=== PATIENT | male | born 1980 | race Caucasian/White ===

== ENCOUNTER → 2017-09-25 | Outpatient (CLI) | payer BC ==
[~2017-09-25] VITALS: Ht 200.7 cm; Wt 104.4 kg
[~2017-09-25] MED LIST: OMEPRAZOLE40 M1 PO
== END | disposition home or self-care (01) ==
LOC: AMB 11:34
DX: K22.2 Esophageal obstruction (principal); K44.9 Diaphragmatic hernia without obstruction or gangrene; K21.0 Gastro-esophageal reflux disease with esophagitis; K43.9 Ventral hernia without obstruction or gangrene; E78.5 Hyperlipidemia, unspecified; R73.01 Impaired fasting glucose; Z83.49 Family history of other endocrine, nutritional and metabolic diseases; Z82.49 Family history of ischemic heart disease and other diseases of the circulatory system; Z82.0 Family history of epilepsy and other diseases of the nervous system
CPT/HCPCS: 88305; J2250